=== PATIENT | male | born 1975 | race Caucasian/White ===

== ENCOUNTER → 2018-10-21 | Outpatient (CLI) | payer BC, SELFPAY ==
[2018-10-04 15:10] VITALS: BMI 26.2
[2018-10-21 12:55] LABS: Absolute Lymphocyte Count 1.11 X10^3/ul (0.83-4.51); Absolute Neutrophil Count 3.9 X10^3/uL (2.0-7.7); Basophil# 0.02 X10^3/uL; Basophil% 0.3 % (0-1); Eosinophil# 0.13 X10^3/uL; Eosinophils% 2.2 % (0-5); Hematocrit 47.8 % (40-54); Hemoglobin 16.6 g/dl (13.0-16.5); Lymphocyte # 1.11 X10^3/ul (4.0); Lymphocyte % 18.9 % (19-41); Mean Corp Hgb Conc 34.7 g/gl (32-36); Mean Corpuscular Hgb 30.7 pg (27.0-32.0); Mean Corpuscular Volume 88.5 fL (80-94); Mean Platelet Vol. 11.1 fl (6.2-12.0); Monocyte# 0.69 X10^3/uL; Monocyte% 11.8 % (0-10); Neutrophil # 3.88 X10^3/uL (2.7-7.7); Neutrophil % 66.3 % (47-70); Platelet Count 161 K/mm3 (150-450); RBC Distribution Width CV 13.1 % (11.6-14.6); RBC Distribution Width SD 42.2 fl (35.1-43.9); White Blood Count 5.9 K/mm3 (4.4-11.0)
[2018-10-21 12:57] LABS: POSITIVE COUNT NO; POSITIVE DIFFERENTIAL NO; POSITIVE MORPHOLOGY NO
[2018-10-21 13:15] LABS: ALB/GLOB Ratio 1.4 RATIO (0.9-2.4); AST(SGOT) 53 U/L (15-37); Alanine Aminotransfer ALT/SGPT 117 U/L (16-61); Albumin, Serum 4.2 g/dL (3.2-5.0); Alkaline Phosphatase 73 U/L (45-117); Anion Gap 5 (5-15); BUN 14 mg/dL (7-18); BUN/Creat Ratio 13.6 RATIO (10-20); Chloride 103 mmol/L (98-107); Creatinine, Serum 1.03 mg/dL (0.70-1.30); EST Glomerular Filtration Rate 84 mL/min (>60); Est Glom Filt Rate - Afr Amer 102 mL/min (>60); Globulin 2.9 g/dL (2.2-4.2); Glucose 87 mg/dL (74-106); Potassium 4.1 mmol/L (3.5-5.1); Protein, Total 7.1 g/dL (6.4-8.2); Sodium Level 139 mmol/L (136-145)
== END | disposition home or self-care (01) ==
LOC: BIMLAB 08:26
PROVIDERS: Family Provider Family Medicine; PCP Internal Medicine; Visit Provider Internal Medicine
DX: R74.8 Abnormal levels of other serum enzymes (principal)
CPT/HCPCS: 36415; 80053; 85025

== ENCOUNTER → 2018-10-28 | Outpatient (CLI) | payer BC, SELFPAY ==
[2018-10-04 15:10] VITALS: BMI 26.2
[2018-10-30 14:47] LABS: HEPATITIS B SURFACE AG Negative (Negative); Hep C Antibodies <0.1 s/co ratio (0.0-0.9)
== END | disposition home or self-care (01) ==
PROVIDERS: Family Provider Internal Medicine; PCP Internal Medicine; Referring Provider Internal Medicine; Visit Provider Internal Medicine
DX: R94.5 Abnormal results of liver function studies (principal)
CPT/HCPCS: 36415; 86803; 87340

== ENCOUNTER → 2018-10-31 | Outpatient (CLI) | payer BC, SELFPAY ==
[2018-10-04 15:10] VITALS: BMI 26.2
--- NOTE | 2018-10-31 10:00 | US_ITS ---
STUDY: ABDOMINAL ULTRASOUND - RIGHT UPPER QUADRANT REASON FOR VISIT: Male, 43 years old. Abnormal labs. Cholecystectomy 10 years ago. TECHNIQUE: Ultrasound evaluation of the right upper quadrant was performed with real-time and static cedeno-scale imaging. TECHNICAL QUALITY: Adequate. COMPARISON: None. FINDINGS: Liver: The liver measures 15.5 cm. There is normal echogenicity of the liver. The bile ducts are within normal limits. There is hepatic color flow. The direction of portal flow is hepatopetal. There is no demonstrated mass lesion. Gallbladder: Postsurgical absence. Common Bile Duct (C.B.D.): The common bile duct measures 3.4 mm. Pancreas: Normal size of the head, body and tail of the pancreas. There is normal echogenicity of the pancreas. There is no demonstrated pancreatic mass or cyst. The pancreatic duct is not dilated. Right Kidney: Normal size of the right kidney. The right kidney measures 11.4 x 5.5 x 5 point cm. Normal renal cortex. The right cortex measures 1.7 cm. There is no demonstrated renal mass or cyst. There is no right hydronephrosis. US/Liver IMPRESSION: 1. Normal right upper quadrant ultrasound examination. 2. Postsurgical absence of the gallbladder. Electronically Signed: Luis Alberto Tadeo MD at 10:59 EDT , Service support ,
== END | disposition home or self-care (01) ==
LOC: US 09:59
PROVIDERS: Family Provider Internal Medicine; PCP Internal Medicine; Referring Provider Internal Medicine; Visit Provider Internal Medicine
DX: R94.5 Abnormal results of liver function studies (principal)
CPT/HCPCS: 76705

== ENCOUNTER → 2018-12-23 | Outpatient (CLI) | payer BC, SELFPAY ==
[2018-11-01 15:03] VITALS: BMI 26.2
[2018-12-23 17:53] LABS: AST(SGOT) 19 U/L (15-37); Alanine Aminotransfer ALT/SGPT 39 U/L (16-61); Albumin, Serum 4.1 g/dL (3.2-5.0); Alkaline Phosphatase 71 U/L (45-117); Bilirubin, Direct 0.22 mg/dL (0.00-0.30); GGTP 59 U/L (15-85); Globulin 3.1 g/dL (2.2-4.2); LDH 202 U/L (87-241); Protein, Total 7.2 g/dL (6.4-8.2)
== END | disposition home or self-care (01) ==
LOC: MTLAB 16:26
PROVIDERS: Family Provider Internal Medicine; PCP Internal Medicine; Referring Provider Internal Medicine Gastroenterology; Visit Provider Internal Medicine Gastroenterology
DX: K75.9 Inflammatory liver disease, unspecified (principal)
CPT/HCPCS: 36415; 80076; 82977; 83615; 86880

== ENCOUNTER → 2019-03-30 | Outpatient (CLI) | payer BC, SELFPAY ==
[2018-11-01 15:03] VITALS: BMI 26.2
[2019-03-30 07:01] LABS: ALB/GLOB Ratio 1.3 RATIO (0.9-2.4); AST(SGOT) 17 U/L (15-37); Alanine Aminotransfer ALT/SGPT 33 U/L (16-61); Albumin, Serum 3.9 g/dL (3.2-5.0); Alkaline Phosphatase 69 U/L (45-117); Anion Gap 3 (5-15); BUN 19 mg/dL (7-18); Calcium,Total 8.8 mg/dL (8.5-10.1); Chloride 105 mmol/L (98-107); Cholesterol 150 mg/dL (200); Creatinine, Serum 0.95 mg/dL (0.70-1.30); EST Glomerular Filtration Rate 92 mL/min (>60); Est Glom Filt Rate - Afr Amer 112 mL/min (>60); Globulin 2.9 g/dL (2.2-4.2); Glucose 89 mg/dL (74-106); High Density Lipoprotein 31 mg/dL; Potassium 3.7 mmol/L (3.5-5.1); Protein, Total 6.8 g/dL (6.4-8.2); Sodium Level 138 mmol/L (136-145); Triglycerides 287 mg/dL; Very Low Density Lipoprotein 57 mg/dL (5-40)
== END | disposition home or self-care (01) ==
LOC: LAB 05:59
PROVIDERS: Family Provider Internal Medicine; PCP Internal Medicine; Referring Provider Nurse Practitioner Family; Visit Provider Nurse Practitioner Family
DX: R74.8 Abnormal levels of other serum enzymes (principal); E78.1 Pure hyperglyceridemia
CPT/HCPCS: 36415; 80053; 80061

== ENCOUNTER → 2020-08-09 10:22 | Outpatient (CLI) | payer BC, OTHER, SELFPAY ==
[2020-08-09 10:10] VITALS: BMI 27.8
[2020-08-09 12:14] LABS: Absolute Lymphocyte Count 1.14 X10^3/uL (0.83-4.51); Absolute Neutrophil Count 2.9 X10^3/uL (2.0-7.7); Basophil# 0.04 X10^3/uL; Basophil% 0.8 % (0-1); Eosinophil# 0.19 X10^3/uL; Hematocrit 48.5 % (40-54); Hemoglobin 16.9 g/dL (13.0-16.5); Lymphocyte # 1.14 X10^3/ul (4.0); Lymphocyte % 24.1 % (19-41); Mean Corp Hgb Conc 34.8 g/dL (32-36); Mean Corpuscular Hgb 30.3 pg (27.0-32.0); Mean Corpuscular Volume 86.9 fL (80-94); Monocyte# 0.47 X10^3/uL; Monocyte% 9.9 % (0-10); NRBC Flagged by Analyzer 0 % (0-5); Neutrophil # 2.88 X10^3/uL (2.7-7.7); Platelet Count 191 K/mm3 (150-450); RBC Distribution Width CV 12.1 % (11.6-14.6); RBC Distribution Width SD 38.6 fl (35.1-43.9); Red Blood Count 5.58 M/mm3 (4.6-6.2); White Blood Count 4.7 K/mm3 (4.4-11.0)
[2020-08-09 12:29] LABS: ALB/GLOB Ratio 1.2 RATIO (0.9-2.4); AST(SGOT) 22 U/L (15-37); Alanine Aminotransfer ALT/SGPT 62 U/L (16-61); Alkaline Phosphatase 77 U/L (45-117); Anion Gap 3 (5-15); BUN 16 mg/dL (7-18); BUN/Creat Ratio 13.6 RATIO (10-20); Calcium,Total 9.5 mg/dL (8.5-10.1); Chloride 105 mmol/L (98-107); Cholesterol 188 mg/dL (200); Creatinine, Serum 1.18 mg/dL (0.70-1.30); EST Glomerular Filtration Rate 71 mL/min (>60); Est Glom Filt Rate - Afr Amer 86 mL/min (>60); Globulin 3.3 g/dL (2.2-4.2); Glucose 96 mg/dL (74-106); High Density Lipoprotein 34 mg/dL; Potassium 4.4 mmol/L (3.5-5.1); Protein, Total 7.3 g/dL (6.4-8.2); Sodium Level 138 mmol/L (136-145); Triglycerides 335 mg/dL; Very Low Density Lipoprotein 67 mg/dL (5-40)
== END ==
PROVIDERS: PCP Internal Medicine; Referring Provider Internal Medicine; Visit Provider Internal Medicine
DX: Z00.00 Encounter for general adult medical examination without abnormal findings (principal)
CPT/HCPCS: 36415; 80053; 80061; 85025

== ENCOUNTER → 2020-11-22 10:06 | Outpatient (CLI) | payer BC, OTHER, SELFPAY ==
[2020-11-22 09:12] VITALS: BMI 27.8
[2020-11-22 13:38] LABS: ALB/GLOB Ratio 1.4 RATIO (0.9-2.4); AST(SGOT) 20 U/L (15-37); Alanine Aminotransfer ALT/SGPT 38 U/L (16-61); Albumin, Serum 4.2 g/dL (3.2-5.0); Alkaline Phosphatase 55 U/L (45-117); Anion Gap 4 (5-15); BUN 16 mg/dL (7-18); BUN/Creat Ratio 14.3 RATIO (10-20); Calcium,Total 9.3 mg/dL (8.5-10.1); Chloride 105 mmol/L (98-107); Cholesterol 185 mg/dL (200); Creatinine, Serum 1.12 mg/dL (0.70-1.30); EST Glomerular Filtration Rate 76 mL/min (>60); Est Glom Filt Rate - Afr Amer 91 mL/min (>60); Globulin 2.9 g/dL (2.2-4.2); Glucose 97 mg/dL (74-106); High Density Lipoprotein 38 mg/dL; Protein, Total 7.1 g/dL (6.4-8.2); Sodium Level 140 mmol/L (136-145); Triglycerides 183 mg/dL; Very Low Density Lipoprotein 37 mg/dL (5-40)
== END ==
PROVIDERS: PCP Internal Medicine; Visit Provider Internal Medicine
DX: E78.1 Pure hyperglyceridemia (principal)
CPT/HCPCS: 36415; 80053; 80061

== ENCOUNTER 2021-09-19 09:15 | Outpatient (CLI) | payer BC, SELFPAY ==
[2021-09-19 12:09] LABS: Absolute Lymphocyte Count 0.98 X10^3/uL (0.83-4.51); Absolute Neutrophil Count 2.8 X10^3/uL (2.0-7.7); Basophil# 0.05 X10^3/uL; Basophil% 1.1 % (0-1); Eosinophil# 0.13 X10^3/uL; Eosinophils% 2.9 % (0-5); Hematocrit 46.9 % (40-54); Hemoglobin 16.1 g/dL (13.0-16.5); Lymphocyte # 0.98 X10^3/ul (0.83-4.51); Lymphocyte % 21.8 % (19-41); Mean Corp Hgb Conc 34.3 g/dL (32-36); Mean Corpuscular Hgb 30.3 pg (27.0-32.0); Mean Corpuscular Volume 88.2 fL (80-94); Mean Platelet Vol. 11.1 fl (6.2-12.0); Monocyte# 0.49 X10^3/uL; Monocyte% 10.9 % (0-10); NRBC Flagged by Analyzer 0 % (0-5); Neutrophil # 2.84 X10^3/uL (2.7-7.7); Neutrophil % 63.1 % (47-70); Platelet Count 185 K/mm3 (150-450); RBC Distribution Width CV 12.6 % (11.6-14.6); RBC Distribution Width SD 40.7 fl (35.1-43.9); Red Blood Count 5.32 M/mm3 (4.6-6.2); White Blood Count 4.5 K/mm3 (4.4-11.0)
[2021-09-19 12:31] LABS: ALB/GLOB Ratio 1.5 RATIO (0.9-2.4); AST(SGOT) 18 U/L (15-37); Alanine Aminotransfer ALT/SGPT 32 U/L (16-61); Albumin, Serum 4.1 g/dL (3.2-5.0); Alkaline Phosphatase 59 U/L (45-117); Anion Gap 5 (5-15); BUN 15 mg/dL (7-18); BUN/Creat Ratio 14.2 RATIO (10-20); Calcium,Total 8.9 mg/dL (8.5-10.1); Chloride 105 mmol/L (98-107); Cholesterol 145 mg/dL (200); Creatinine, Serum 1.06 mg/dL (0.70-1.30); EST Glomerular Filtration Rate 80 mL/min (>60); Est Glom Filt Rate - Afr Amer 97 mL/min (>60); Globulin 2.8 g/dL (2.2-4.2); Glucose 100 mg/dL (74-106); High Density Lipoprotein 38 mg/dL; Potassium 3.8 mmol/L (3.5-5.1); Protein, Total 6.9 g/dL (6.4-8.2); Sodium Level 139 mmol/L (136-145); Triglycerides 112 mg/dL; Very Low Density Lipoprotein 22 mg/dL (5-40)
== END 2021-09-19 23:59 | disposition home or self-care (01) ==
LOC: BIMLAB 09:16
PROVIDERS: PCP Internal Medicine; Referring Provider Internal Medicine; Visit Provider Internal Medicine
DX: Z00.00 Encounter for general adult medical examination without abnormal findings (principal)
CPT/HCPCS: 36415; 80053; 80061; 85025

== ENCOUNTER 2021-12-29 14:15 | Emergency (ER) | payer BC, SELFPAY ==
[2021-12-29 14:16] VITALS: BP 172/101; PULSE 109; RESP 18; TEMP 36.6; O2SAT 99; BMI 26.8
--- NOTE | 2021-12-29 14:28 | EDS_ITS ---
HPI History of Present Illness Chief Complaint: Upper Extremity Injury Detail of Chief Complaint: Injury left thumb Informant: patient Narrative Narrative: Patient presents the emergency department complaint of an injury to his left thumb that occurred prior to arrival in the emergency department. Patient states that he was working on a [employer] when he is not sure if he struck his thumb with a hammer or that the metal piece came back and struck him on the thumb after he hit it with a hammer. Patient is right-hand dominant. Patient unsure of his last tetanus shot. [facility] Medical History (Updated 12/29/21 @ 14:[address] Varun Abdi, DO) Colon cancer screening Dermatitis History of asthma Preventative health care Seasonal allergies Home Medications fenofibrate 54 mg tablet 54 mg PO DAILY #90 tabs 09/05/21 [Rx Last Taken Unknown] cephalexin 500 mg capsule 500 mg PO Q6 #40 CAPSULES 12/29/21 [Rx Last Taken Unknown] Allergy/AdvReac Type Severity Reaction Status Date / Time amoxicillin Allergy Severe hives Verified 12/29/21 14:17 Family History Other Arthritis Cancer Heart disease Surgical History History of appendectomy History of cholecystectomy Social History Smoking Status: Never smoker Tobacco: How many years used: 2 alcohol intake: current alcohol intake frequency: holidays/special occasions only substance use type: does not use what type of physical activity do you participate in: none ROS ROS ED Review of Systems ROS Unobtainable: other Constitutional Constitutional ED: Reports lethargy; Denies chills, fever(s), sweats or weight loss Eyes Eyes: Denies blurry vision, change in vision or diplopia ENT ENT ED: Denies rhinorrhea or sore throat Cardiovascular Cardiovascular: Reports chest pain and racing heartbeat; Denies orthopnea Respiratory/Chest Respiratory/Chest: Reports dyspnea and dyspnea on exertion; Denies cough, orthopnea or sputum Gastrointestinal Gastrointestinal: Denies abdominal pain, diarrhea, nausea or vomiting Genitourinary Genitourinary ED: Denies dysuria, hematuria or urinary frequency Musculoskeletal Musculoskeletal: Reports other Details: Left thumb pain/injury ; Denies arthralgias, back pain, myalgias or neck pain Integumentary Denies abscess, Abrasions or rash Neurologic Neurologic: Denies headache(s) or weakness Psychiatric Psychiatric: Denies anxiety, depression or suicidal thoughts Endocrine Endocrinology: Denies polydipsia, polyphagia or polyuria Hematologic/Lymphatic Hematologic/Lymphatic: Denies easy bleeding, easy bruising or lymphadenopathy Allergic/Immunologic Allergic/Immunologic ED: Denies mouth swelling, tongue swelling or urticaria EXAM Physical Exam Const Vital Signs: 12/29/21 14:16 Temperature 97.9 F Temperature Source Temporal Pulse Rate 109 H Respiratory Rate 18 Blood Pressure 172/101 H Blood Pressure Mean 124 Pulse Ox 99 Oxygen Delivery Method Room Air Positive well nourished and well developed General Appearance ED: well developed and NAD HEENT Reports TM's clear and moist mucous membranes normocephalic and atraumatic; Negative for trauma or tenderness Tympanic Membrane ED: Yes TM's clear Eyes PERRL and EOMs intact bilaterally General Eye ED: Negative for pale conjunctiva or scleral icterus Neck no lymphadenopathy, supple and no JVD General: Negative for tenderness Chest Wall inspection of chest normal and palpation of chest normal Chest: Negative for tenderness Resp normal respiratory effort and clear to auscultation bilaterally Effort and Inspection: Negative for respiratory distress or pain with movement Auscultation: Negative for rhonchi, wheezes or diminished lung sounds Cardio regular rate, regular rhythm, S1 normal heart sound, S2 normal heart sound and no murmurs Peripheral Pulses: pulses 2+ throughout GI normal to inspection, nondistended, normoactive bowel sounds, soft to palpation, non-tender, non-distended and no masses Back/Spine no CVA tenderness and no thoracic nor lumbar tenderness Extremity Extremity Narrative: Left thumb-patient has a stellate like laceration to the distal tip of the distal phalanx volar to the nail. He has tenderness palpation over the distal phalanx. Neurovascularly intact. Laceration total length approximately 2.5 cm. General Extremety ED: Negative for edema General Extremity: Negative for edema Neuro oriented x3, CN's II-XII intact bilaterally, no sensory deficits noted and gait normal Sensorium / Orientation: awake, alert, oriented to person, oriented to place and oriented to time Motor Exam: strength 5/5 throughout and strength abnormal Psych mental status grossly normal Skin no rashes or lesions noted and no wounds MDM MDM MDM Narrative Medical decision making narrative: Discussed results of x-rays with patient. Patient had suture repair of the thumb. The laceration extended into the nailbed small portion underneath the nail itself which was still attached and intact. Did not feel the nail needed to be removed. I attached the dermal portion of the skin using 5 single erupted sutures of 5-0 nylon with good wound edge approximation. Patient tolerated procedure well. The wound was copiously irrigated with saline. Clean dressing was applied. Patient will be given a cage splint. Patient will be started on Keflex. Patient to follow-up with primary care physician in 10 days for suture removal. Patient to return if increasing pain, redness, swelling, purulent drainage, or condition worsen anyway. Patient received Adacel tetanus booster. Radiography Diagnostic Testing: Three-view x-rays of left thumb obtained interpreted by myself as distal phalanx fracture that is nondisplaced. Official report from radiology pending. Procedures Lacerations Left thumb laceration: Length: 0.98 in Depth: Sub Q Shape: Stellate Prep: Sterile Conditions Laceration repair: Digital block, Lidocaine, Skin sutures and Wound explored Irrigated (ml): 50 Number of Sutures/Lion: 5 Suture Information: Ethilon, Simple and 5-0 Discharge Plan Triage Chief Complaint: Upper Extremity Injury ED Provider: Varun Abdi Dx/Rx/DC Orders Clinical Impression: Open finger fracture Instructions: ED Fracture, Finger, Open Prescriptions: New cephalexin [cephalexin] 500 MG capsule 500 mg PO Q6 Qty: 40 0RF No Action fenofibrate 54 mg tablet 54 mg PO DAILY Qty: 90 3RF Primary Care Provider: Hi Madera Referrals: Hi Madera MD [Primary Care Provider] - 10 Day for suture removal Disposition Disposition: Home, Self Care
--- NOTE | 2021-12-29 14:32 | RAD_ITS ---
STUDY: X-RAY - LEFT HAND, ATTENTION THUMB REASON FOR EXAM: Male, 46 years old. injury TECHNIQUE: 3 view(s) of the finger were obtained. COMPARISON: None. FINDINGS: An acute linear fracture is present through the head/tip of the distal phalanx of the thumb with minimal displacement. No additional acute fractures are present. The surrounding soft tissues are mildly swollen. Normal metacarpal head. Normal metacarpophalangeal joint. Normal proximal phalanx. Normal middle phalanx. Normal proximal interphalangeal joint. Normal distal interphalangeal joint. RAD/Finger(s) Min 2 Views IMPRESSION: 1. Acute linear fracture through the tip of the distal phalanx of the thumb Electronically Signed: Jose Robbins MD at 15:36 EDT ,
[2021-12-29] MEDS: Diphth,Pertuss(Acell),Tet Vac 0.5 ML Vial IM (14:34)
[2021-12-29] MEDS: Lidocaine 1% (20 ml mdv) 20 ML Vial 8 ML INFILT (14:37)
[2021-12-29] MEDS: Cephalexin 250 MG Capsule 500 MG PO (15:03)
== END 2021-12-29 15:13 | disposition home or self-care (01) ==
PROVIDERS: Emergency Provider Emergency Medicine; PCP Internal Medicine; Visit Provider Emergency Medicine
DX: S62.502B Fracture of unspecified phalanx of left thumb, initial encounter for open fracture (principal); Z23 Encounter for immunization; X58.XXXA Exposure to other specified factors, initial encounter
CPT/HCPCS: 12001; 73140; 90715; 96372; 99282

== ENCOUNTER 2022-11-14 13:20 | Emergency (ER) | payer BC, SELFPAY ==
[2022-11-14 13:21] VITALS: BP 156/83; PULSE 73; RESP 16; TEMP 36.3; O2SAT 99; BMI 26.9
[2022-11-14] MEDS: oxyCODONE 5 MG Tablet PO (13:47)
--- NOTE | 2022-11-14 13:58 | RAD_ITS ---
INDICATION: injury EXAMINATION/TECHNIQUE: X-RAY - LEFT XR Femur Min 2 Views 4 VIEWS COMPARISON: FINDINGS: SOFT TISSUES: No soft tissue swelling or gas. No radiopaque foreign body. BONES/JOINTS: No acute fracture or subluxation.. Normal alignment. Preservation of the joint space.. No sclerotic or destructive changes observed. RAD/Femur Min 2 Views IMPRESSION: No acute osseous injury. Electronically Signed: Phyllis Gar MD at 14:35 EDT ,
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
== END 2022-11-14 15:22 | disposition home or self-care (01) ==
PROVIDERS: Emergency Provider Student in an Organized Health Care Education/Training Program; PCP Internal Medicine; Visit Provider Student in an Organized Health Care Education/Training Program
DX: S70.312A Abrasion, left thigh, initial encounter (principal); W31.89XA Contact with other specified machinery, initial encounter; Y92.79 Other farm location as the place of occurrence of the external cause; E78.5 Hyperlipidemia, unspecified; Z79.899 Other long term (current) drug therapy; Z90.49 Acquired absence of other specified parts of digestive tract
CPT/HCPCS: 73552; 73590; 99283

== ENCOUNTER 2022-11-18 18:10 | Emergency (ER) | payer BC, SELFPAY ==
[2022-11-18 18:11] VITALS: BP 145/91; PULSE 80; RESP 18; TEMP 35.8; O2SAT 97; BMI 26.4
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
[2022-11-18 19:54] VITALS: BP 113/83; PULSE 74; RESP 16; O2SAT 98
== END 2022-11-18 19:56 | disposition home or self-care (01) ==
PROVIDERS: Emergency Provider Emergency Medicine; PCP Internal Medicine; Visit Provider Emergency Medicine
DX: S80.12XA Contusion of left lower leg, initial encounter (principal); R60.0 Localized edema; Z90.49 Acquired absence of other specified parts of digestive tract; W22.8XXA Striking against or struck by other objects, initial encounter; Y92.79 Other farm location as the place of occurrence of the external cause
CPT/HCPCS: 93971; 99282

== ENCOUNTER → 2023-12-17 | Outpatient (CLI) | payer BC, SELFPAY ==
[2023-12-17 12:18] LABS: Absolute Lymphocyte Count 1.04 X10^3/uL (0.83-4.51); Absolute Neutrophil Count 3.3 X10^3/uL (2.0-7.7); Basophil# 0.03 X10^3/uL; Basophil% 0.6 % (0-1); Eosinophil# 0.04 X10^3/uL; Eosinophils% 0.8 % (0-5); Hematocrit 44.2 % (40-54); Hemoglobin 15.1 g/dL (13.0-16.5); Lymphocyte # 1.04 X10^3/ul (0.83-4.51); Lymphocyte % 21.1 % (19-41); Mean Corp Hgb Conc 34.2 g/dL (32-36); Mean Corpuscular Hgb 30.3 pg (27.0-32.0); Mean Corpuscular Volume 88.6 fL (80-94); Mean Platelet Vol. 11.2 fl (6.2-12.0); Monocyte# 0.47 X10^3/uL; Monocyte% 9.5 % (0-10); NRBC Flagged by Analyzer 0 % (0-5); Neutrophil # 3.34 X10^3/uL (2.7-7.7); Neutrophil % 67.8 % (47-70); Platelet Count 162 K/mm3 (150-450); RBC Distribution Width CV 12.2 % (11.6-14.6); RBC Distribution Width SD 39.6 fl (35.1-43.9); Red Blood Count 4.99 M/mm3 (4.6-6.2); White Blood Count 4.9 K/mm3 (4.4-11.0)
[2023-12-17 12:43] LABS: ALB/GLOB Ratio 1.4 RATIO (0.9-2.4); AST(SGOT) 25 U/L (15-37); Alanine Aminotransfer ALT/SGPT 39 U/L (16-61); Albumin, Serum 3.9 g/dL (3.2-5.0); Alkaline Phosphatase 50 U/L (45-117); Anion Gap 10 (5-15); BUN 18 mg/dL (7-18); BUN/Creat Ratio 17.3 RATIO (10-20); Calcium,Total 8.9 mg/dL (8.5-10.1); Chloride 106 mmol/L (98-107); Cholesterol 139 mg/dL (200); Creatinine, Serum 1.04 mg/dL (0.70-1.30); EST Glomerular Filtration Rate 81 mL/min (>60); Est Glom Filt Rate - Afr Amer 98 mL/min (>60); Globulin 2.8 g/dL (2.2-4.2); Glucose 104 mg/dL (74-106); High Density Lipoprotein 39 mg/dL; Potassium 3.7 mmol/L (3.5-5.1); Protein, Total 6.7 g/dL (6.4-8.2); Sodium Level 141 mmol/L (136-145); Triglycerides 115 mg/dL; Very Low Density Lipoprotein 23 mg/dL (5-40)
== END | disposition home or self-care (01) ==
LOC: BIMLAB 10:14
PROVIDERS: Physician Assistant; PCP Internal Medicine; Referring Provider Internal Medicine; Visit Provider Internal Medicine
DX: Z00.00 Encounter for general adult medical examination without abnormal findings (principal); E78.5 Hyperlipidemia, unspecified
CPT/HCPCS: 36415; 80053; 80061; 85025

== ENCOUNTER → 2025-01-26 | Outpatient (CLI) | payer OTHER, BC, SELFPAY ==
[2025-01-26 16:35] LABS: Hematocrit 42.7 % (40-54); Hemoglobin 14.9 g/dL (13.0-16.5); Immature Granulocytes Count 0.030 X10^3/uL (0.0-0.0); Mean Corp Hgb Conc 34.9 g/dL (32-36); Mean Corpuscular Volume 87.9 fL (80-94); Mean Platelet Vol. 10.9 fl (6.2-12.0); NRBC Flagged by Analyzer 0 % (0-5); Platelet Count 168 K/mm3 (150-450); RBC Distribution Width CV 12.6 % (11.6-14.6); RBC Distribution Width SD 40.5 fl (35.1-43.9); Red Blood Count 4.86 M/mm3 (4.6-6.2); White Blood Count 5.2 K/mm3 (4.4-11.0)
[2025-01-26 17:16] LABS: AST(SGOT) 24 U/L (<=37); Alanine Aminotransfer ALT/SGPT 32 U/L (<=46); Albumin, Serum 4.3 g/dL (3.5-5.0); Alkaline Phosphatase 58 U/L (40-129); Anion Gap 12 (5-15); BUN 16 mg/dL (4-19); BUN/Creat Ratio 14.7 RATIO (10-20); Calcium,Total 10.0 mg/dL (7.6-11.0); Carbon Dioxide 24.3 mmol/L (21.0-32.0); Chloride 105 mmol/L (98-108); Cholesterol 152 mg/dL (<=200); Globulin 2.1 g/dL (2.2-4.2); Glucose 108 mg/dL (70-99); Low Density Lipoprotein Calc. 82 mg/dL; Potassium 3.7 mmol/L (3.3-5.1); Triglycerides 164 mg/dL; Very Low Density Lipoprotein 33 mg/dL (5-40); cholesterol:hdl ratio screen 4.04
--- OUTSIDE RECORDS SUMMARY | 2025-01-26 19:30 | XMS RPT_ITS | CCD ---
Author Organization [facility] Care Team Providers Care Compensation Consulting Manager Name Role Phone Dr. Hi Madera Primary Care Provider [phone] Dr. Hi Madera Attending Provider [phone] Dr. Hi Madera Referring Provider [phone] Hi Madera Referring Unavailable Josse Miller Attending Unavailable Hi Madera Primary Care Unavailable Hi Madera Primary Care Unavailable Hi Madera Attending Unavailable Hi Madera Referring Unavailable Santy DANIEL, Dr. Do Primary Care Provider Dr. Hi Madera MD Referring Provider [phone] Josse Miller Attending Provider [phone] Allergies Allergy Classification Reported Allergen(s) Allergy Type Date of Onset Reaction(s) Facility (3 sources) Amoxicillin Drug Allergy 09-05-2021 [facility] (1 source) Amoxicillin Drug Allergy 12-08-2023 [facility] Repository Medications Current Medications Medication Drug Class(es) Dates Sig (Normalized) Sig (Original) fenofibrate 54 mg oral tablet (10 sources) Peroxisome Proliferator Receptor alpha Agonist Start: 08-09-2020 End: 01-26-2025 take 1 tablet by mouth once daily Fenofibrate 54 mg tablet Active 0 .ROUTE .COMPLEX 90 January 26, 2025 3:22pm TAKE 1 TABLET BY MOUTH DAILY hydrocortisone 25 mg/ml topical cream (1 source) Corticosteroid Start: 09-05-2021 Hydrocortisone Active 1 APPLIC TOPICAL TWICE A DAY September 05, 2021 4:00pm Completed/Discontinued Medications Medication Drug Class(es) Dates Sig (Normalized) Sig (Original) B-Complex With Vitamin C (Super B Complex-Vitamin C) tablet (3 sources) Start: 10-04-2018 End: 11-01-2018 take 1 tablet by mouth once daily B-Complex With Vitamin C (Super B Complex-Vitamin C) tablet Discontinued 1 TABLET PO DAILY October 04, 2018 3:07pm November 01, 2018 3:01pm Start: 10-04-2018 End: 11-01-2018 B-Complex With Vitamin C (Meza per B Complex-Vitamin C) tablet Discontinued 1 {tbl} PO DAILY October 04, 2018 12:00am November 01, 2018 3:01pm Start: 10-04-2018 End: 11-01-2018 take 1 tablet by mouth once daily B-Complex With Vitamin C (Super B Complex-Vitamin C) tablet Discontinued 1 TABLET PO DAILY October 04, 2018 12:00am November 01, 2018 3:01pm cephalexin 500 mg oral capsule (2 sources) Cephalosporin Antibacterial Start: 12-29-2021 End: 01-08-2022 take 1 capsule by mouth every six hours Cephalexin 500 MG capsule Discontinued 500 mg PO EVERY 6 HOURS 40 0 December 29, 2021 12:00am January 08, 2022 2:38pm cholecalciferol 0.05 mg oral capsule (3 sources) Vitamin D Start: 10-04-2018 End: 11-01-2018 take 1 capsule by mouth once daily Cholecalciferol (Vitamin D3) 2,000 unit capsule Discontinued 2000 U PO DAILY October 04, 2018 12:00am November 01, 2018 3:01pm 24 hr fexofenadine hydrochloride 180 mg / pseudoephedrine hydrochloride 240 mg extended release oral tablet (3 sources) alpha-Adrenergic Agonist, Histamine-1 Receptor Antagonist Start: 10-04-2018 End: 08-09-2020 take 1 tablet by mouth every twenty-four hours in the morning Fexofenadine-Pseudoe phedrine (Barbara-D 24 Hour) 180-240 mg tablet extended release 24 hr Discontinued 1 {tbl} PO EVERY MORNING October 04, 2018 12:00am August 09, 2020 11:09am Start: 10-04-2018 End: 08-09-2020 take 1 tablet by mouth once daily in the morning, then take 1 tablet by mouth every twenty-four hours Fexofenadine-Pseudoephedrine (Barbara-D 24 Hour) 180-240 mg tablet extended release 24 hr Discontinued 1 TABLET PO EVERY MORNING October 04, 2018 3:06pm August 09, 2020 11:09am icosapent ethyl 1000 mg oral capsule (3 sources) Start: 03-31-2019 End: 08-09-2020 Icosapent Ethyl (Vascepa) 1 gram capsule Discontinued 2 g PO TWICE A DAY 360 3 March 31, 2019 12:00am August 09, 2020 11:10am Anza 6-Nsp-Vhh-Fish Oil (Fish Oil) 60-90-500 mg capsule (3 sources) Start: 08-09-2020 End: 09-05-2021 take 1 capsule by mouth once daily Anza 8-Niy-Owy-Fish Oil (Fish Oil) 60-90-500 mg capsule Discontinued 1 CAP PO DAILY August 09, 2020 11:09am September 05, 2021 3:32pm Start: 08-09-2020 End: 09-05-2021 Anza 7-Sea-Iki-Fish Oil (Fi sh Oil) 60-90-500 mg capsule Discontinued 1 NMA PO DAILY August 09, 2020 1:00am September 05, 2021 3:32pm Start: 08-09-2020 End: 09-05-2021 take 1 capsule by mouth once daily Anza 9-Ywn-Oqx-Fish Oil (Fish Oil) 60-90-500 mg capsule Discontinued 1 CAP PO DAILY August 09, 2020 1:00am September 05, 2021 3:32pm Problems Problem Classification Problem Date Documented Da te Episodic/Chronic Allergic reactions (5 sources) Inflammatory dermatosis; Translations: [Dermatitis, unspecified] Episodic Disorders of lipid metabolism (7 sources) Hypertriglyceridemi a; Translations: [Pure hyperglyceridemia] Onset: 12-08-2023 11-22-2020 Chronic Fracture of upper limb (2 sources) Open fracture of phalanx of finger; Translations: [Fracture of unspecified phalanx of unspecified finger, initial encounter for open fracture] 01-06-2022 Episodic Open wounds of extremities (1 source) Open wound of left thumb; Translations: [Unspecified open wound of left thumb without damage to nail, initial encounter] 01-08-2022 Episodic Other aftercare (1 source) Surgical follow-up; Translations: [Encounter for removal of sutures] 07-14-2022 Episodic Other connective tissue disease (1 source) Pain in lower limb; Translations: [Pain in leg, unspecified] 11-22-2022 Episodic Other injuries and conditions due to external causes (1 source) Abrasion; Translations: [Other injury of unspecified body region, initial encounter] 11-22-2022 Episodic Other screening for suspected conditions (not mental disorders or infectious disease) (7 sources) Patient encounter status; Translations: [Encounter for screening for malignant neoplasm of colon] Onset: 12-08-2023 Episodic Residual codes; unclassified (1 source) Edema; Translations: [Edema, unspecified] 11-26-2022 Episodic Superficial injury; contusion (1 source) Contusion of left lower leg, initial encounter; Translations: [Contusion of left lower extremity] 11-26-2022 Episodic Varicose veins of lower extremity (3 sources) Varicose veins of lower extremity; Translations: [Asymptomatic varicose veins of left lower extremity] 10-04-2018 Episodic Results Test Name Value Interpretation Reference Range Facil ity CBC W/Diff, Automatedon - Absolute Lymph 1.04 X10 3/uL Normal 0.83-4.51 [facility] Comment on above: Performed By: #### L 100.0100, L500.4050, L500.4100 #### [facility] [address] [place], [address] Absolute Neut 3.3 X10 3/uL Normal 2.0-7.7 [facility] Comment on above: Performed By: #### L 100.0100, L500.4050, L500.4100 #### [facility] [address] [place], [address] Basophils/100 WBC (Bld) 0.6 % Normal 0-1 [facility] Comment on above: Performed By: #### L 100.0100, L500.4050, L500.4100 #### [facility] [address] [place], [address] Eosinophils/100 WBC (Bld) 0.8 % Normal 0-5 [facility] Comment on above: Performed By: #### L 100.0100, L500.4050, L500.4100 #### [facility] [address] [place], [address] Erythrocyte distribution width (RBC) [Ratio] 12.2 % Normal 11.6-14.6 [facility] Comment on above: Performed By: #### L 100.0100, L500.4050, L500.4100 #### [facility] [address] [place], [address] Hematocrit (Bld) [Volume fraction] 44.2 % Normal 40-54 [facility] Comment on above: Performed By: #### L 100.0100, L500.4050, L500.4100 #### [facility] [address] [place], [address] Hemoglobin (Bld) [Mass/Vol] 15.1 g/dL Normal 13.0-16.5 [facility] Comment on above: Performed By: #### L 100.0100, L500.4050, L500.4100 #### [facility] [address] [place], [address] IG% 0.200 Normal 0.0-0.9 [facility] Comment on above: Result Comment: IG% - Immature Granulocytes (promyelocytes, myelocytes and metamyelocytes) > 1% indicates that a LEFT SHIFT is Present. Performed By: #### L 100.0100, L500.4050, L500.4100 #### [facility] [address] [place], [address] Lymphocytes/100 WBC (Bld) 21.1 % Normal 19-41 [facility] Comment on above: Performed By: #### L 100.0100, L500.4050, L500.4100 #### [facility] [address] [place], [address] MCH (RBC) [Entitic mass] 30.3 pg Normal 27.0-32.0 [facility] Comment on above: Performed By: #### L 100.0100, L500.4050, L500.4100 #### [facility] [address] [place], [address] MCHC (RBC) [Mass/Vol] 34.2 g/dL Normal 32-36 [facility] Comment on above: Performed By: #### L 100.0100, L500.4050, L500.4100 #### [facility] [address] [place], [address] MCV (RBC) [Entitic vol] 88.6 fL Normal 80-94 [facility] Comment on above: Performed By: #### L 100.0100, L500.4050, L500.4100 #### [facility] [address] [place], [address] Monocytes/100 WBC (Bld) 9.5 % Normal 0-10 [facility] Comment on above: Performed By: #### L 100.0100, L500.4050, L500.4100 #### [facility] [address] [place], [address] Neutrophils/100 WBC (Bld) 67.8 % Normal 47-70 [facility] Comment on above: Performed By: #### L 100.0100, L500.4050, L500.4100 #### [facility] [address] [place], [address] Nucleated RBC (Bld) [#/Vol] 0 10*3/uL Normal 0-5 [facility] Comment on above: Performed By: #### L 100.0100, L500.4050, L500.4100 #### [facility] [address] [place], [address] Platelet mean volume (Bld) [Entitic vol] 11.2 fL Normal 6.2-12.0 [facility] Comment on above: Performed By: #### L 100.0100, L500.4050, L500.4100 #### [facility] [address] [place], [address] Platelets (Bld) [#/Vol] 162 10*3/uL Normal 150-450 [facility] Comment on above: Performed By: #### L 100.0100, L500.4050, L500.4100 #### [facility] [address] [place], [address] RBC (Bld) [#/Vol] 4.99 10*6/uL Normal 4.6-6.2 [facility] Comment on above: Performed By: #### L 100.0100, L500.4050, L500.4100 #### [facility] [address] [place], [address] RDW SD 39.6 fl Normal 35.1-43.9 [facility] Comment on above: Performed By: #### L 100.0100, L500.4050, L500.4100 #### [facility] [address] [place], [address] WBC (Bld) [#/Vol] 4.9 10*3/uL Normal 4.4-11.0 [facility] Comment on above: Performed By: #### L 100.0100, L500.4050, L500.4100 #### [facility] [address] [place], [address] Comprehensive Metabolic Prof [facility] 12-17-2023 Albumin [Mass/Vol] 3.9 g/dL Normal 3.2-5.0 [facility] Comment on above: Performed By: #### L 100.0100, L500.4050, L500.4100 #### [facility] [address] [place], [address] Albumin/Globulin [Mass ratio] 1.4 {ratio} Normal 0.9-2.4 [facility] Comment on above: Performed By: #### L 100.0100, L500.4050, L500.4100 #### [facility] [address] [place], [address] ALK P 50 U/L Normal 45-117 [facility] Comment on above: Performed By: #### L 100.0100, L500.4050, L500.4100 #### [facility] [address] [place], [address] ALT [Catalytic activity/Vol] 39 U/L Normal 16-61 [facility] Comment on above: Performed By: #### L 100.0100, L500.4050, L500.4100 #### [facility] [address] [place], [address] AST [Catalytic activity/Vol] 25 U/L Normal 15-37 [facility] Comment on above: Performed By: #### L 100.0100, L500.4050, L500.4100 #### [facility] [address] [place], [address] Bilirubin [Mass/Vol] 1.70 mg/dL High 0.20-1.00 [facility] Comment on above: Result Comment: For patients on eltrombopag therapy, use of Dimension [place] TBIL is not recommended. Performed By: #### L 100.0100, L500.4050, L500.4100 #### [facility] [address] [place], [address] BUN/CRE 17.3 RATIO Normal 10-20 [facility] Comment on above: Performed By: #### L 100.0100, L500.4050, L500.4100 #### [facility] [address] [place], [address] CA,Total 8.9 mg/dL Normal 8.5-10.1 [facility] Comment on above: Performed By: #### L 100.0100, L500.4050, L500.4100 #### [facility] [address] [place], [address] Chloride [Moles/Vol] 106 mmol/L Normal 98-107 [facility] Comment on above: Performed By: #### L 100.0100, L500.4050, L500.4100 #### [facility] [address] [place], [address] CO2 [Moles/Vol] 25.0 mmol/L Normal 21.0-32.0 [facility] Comment on above: Performed By: #### L 100.0100, L500.4050, L500.4100 #### [facility] [address] [place], [address] Creatinine [Mass/Vol] 1.04 mg/dL Normal 0.70-1.30 [facility] Comment on above: Result Comment: The validity of the calculated GFR GFRAA in patients over 70 years has not been determined. Clinical correlation is essential. Performed By: #### L 100.0100, L500.4050, L500.4100 #### [facility] [address] [place], [address] EST GFR - AA 98 mL/min Normal >60 [facility] Comment on above: Result Comment: Afri can Swazi GFR Calc Performed By: #### L 100.0100, L500.4050, L500.4100 #### [facility] [address] [place], [address] GAP 10 Normal 5-15 [facility] Comment on above: Performed By: #### L 100.0100, L500.4050, L500.4100 #### [facility] [address] [place], [address] GFR/1.73 sq M.predicted among non-blacks MDRD (S/P/Bld) [Vol rate/Area] 81 mL/min/{1.73_m2} Normal >60 [facility] Comment on above: Result Comment: Non- GFR Calc Performed By: #### L 100.0100, L500.4050, L500.4100 #### [facility] [address] [place], [address] Globulin (S) [Mass/Vol] 2.8 g/dL Normal 2.2-4.2 [facility] Comment on above: Performed By: #### L 100.0100, L500.4050, L500.4100 #### [facility] [address] [place], [address] Glucose [Mass/Vol] 104 mg/dL Normal 74-106 [facility] Comment on above: Result Comment: Fast ing Glucose result from 100 to 125 mg/dL suggests IMPAIRED HOMEOSTASIS per A.D.A. criteria. Performed By: #### L 100.0100, L500.4050, L500.4100 #### [facility] [address] [place], [address] Potassium [Moles/Vol] 3.7 mmol/L Normal 3.5-5.1 [facility] Comment on above: Performed By: #### L 100.0100, L500.4050, L500.4100 #### [facility] [address] [place], [address] Sodium [Moles/Vol] 141 mmol/L Normal 136-145 [facility] Comment on above: Performed By: #### L 100.0100, L500.4050, L500.4100 #### [facility] [address] [place], [address] T PROT 6.7 g/dL Normal 6.4-8.2 [facility] Comment on above: Performed By: #### L 100.0100, L500.4050, L500.4100 #### [facility] [address] [place], [address] Urea nitrogen [Mass/Vol] 18 mg/dL Normal 7-18 [facility] Comment on above: Performed By: #### L 100.0100, L500.4050, L500.4100 #### [facility] [address] [place], [address] Lipid Profileon 12-17-2023 Cholesterol [Mass/Vol] 139 mg/dL Normal 200 [facility] Comment on above: Result Comment: <200 mg/dL Desirable 200-240 mg/dL Borderline >240 mg/dL High Risk Performed By: #### L 100.0100, L500.4050, L500.4100 #### [facility] [address] [place], [address] Cholesterol in HDL [Mass/Vol] 39 mg/dL Low [facility] Comment on above: Result Comment: The drugs N-Acetylcysteine and Metamizole may falsely depress this assay. Reference Range HDL <40 mg/dL Low HDL Cholesterol HDL >or= 60 mg/dL High HDL Cholesterol Performed By: #### L 100.0100, L500.4050, L500.4100 #### [facility] [address] [place], [address] Cholesterol in LDL [Mass/Vol] 77 mg/dL Normal 0-130 [facility] Comment on above: Performed By: #### L 100.0100, L500.4050, L500.4100 #### [facility] [address] [place], [address] Cholesterol in VLDL [Mass/Vol] 23 mg/dL Normal 5-40 [facility] Comment on above: Performed By: #### L 100.0100, L500.4050, L500.4100 #### [facility] [address] [place], [address] Triglyceride [Mass/Vol] 115 mg/dL Normal [facility] Comment on above: Result Comment: The drugs N-Acetylcysteine and Metamizole may falsely depress this assay. Serum Triglycerides Reference Interval Normal <150 mg/dL Borderline high 150 - 199 mg/dL High 200 - 499 mg/dL Very High > or = 500 mg/dL Performed By: #### L 100.0100, L500.4050, L500.4100 #### [facility] [address] [place], [address] Internal Medicine Office Vis iton 12-08-2023 Internal Medicine Office Visit [facility] [address] [place] [address] [place] [address] OFFICE VISIT Date of Service: 12/08/23 MR#: [id number] Acct: [id number] Name: MARCELO KIRK Rep #: [id number] : 1975 Provider: REX Sarah Age/Sex: 48/M Location: [facility] Status: Signed Intake Vital Signs 11/18/22 18:11 12/08/23 15:23 Height 5 ft 8 in 5 ft 8 in Weight: 177 lb BMI 26.9 BP 120/82 H Blood Pressure Location Lt brachial Position Sitting Respiration 18 Pulse 81 Pulse Source Monitor Temp 97.6 F L Temp Source Temporal Pulse Oximetry (%) 95 Oxygen Delivery Method room air Intake Visit Reasons: FOLLOW UP 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 [facility] Medical History Encounter for removal of sutures Open wound of left thumb without complication Dermatitis Preventative health care Colon cancer screening Seasonal allergies History of asthma Surgical History History of cholecystectomy History of appendectomy Family History Other Arthritis Cancer Heart disease Social History (Updated 12/08/23 @ 15:23 by Brisa Kwon MA) adopted: No household members: spouse and children number of children: 2 service: No current occupational status: employed current occupation: [employer] pets and animals: Yes (2) pets and animals: cat(s) sexually active: Yes do you think of yourself as: straight/heterosexual current gender identity: male Smoking Status: Former smoker quit date: 06/28/96 Tobacco: How many years used: 2 how long ago did patient quit smoking: used smokeless for 20 years alcohol intake: current alcohol intake frequency: holidays/special occasions only substance use type: does not use caffeine: Yes (3) Type: carbonated beverages and coffee what type of physical activity do you participate in: none seatbelt use: always do you feel safe at home: Yes HPI HPI Details: MARCELO KIRK, is a 48 M who presents to the office today for a refill of medication for his cholesterol. He states that he has not been in here in almost 2 years but states that he was given a years worth of the medication about a year ago. He states that he doesn't really have family history of high cholesterol and there is no heart disease / acute coronary syndrome that he is aware of. He overall is a healthy 48 year old male without any major medical history. He states that he does have a pretty balanced diet getting lots of fruits and vegetables. He eats fast foods 1-2 times a week. He tries to avoid the sweets / junk foods. He does drink about 2 cups of coffee per day and one pop and then some water. 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 He has not had any previous medical issues other than having his gall bladder and appendix removed in 2 separate events. There is some cancer in the family (uncle with skin cancer, grandfather with some form of cancer). Patient does see a dentist regularly. He does not seen eye doctor He is UTD with immunizations as far as he knows. No diabetes or HTN issues with him or family Patient has no concerns or complaints at this time ROS Const Constitutional: No body ache, chills, excessive sweating, fatigue, fever(s), frequent falls, headache(s), snoring, weakness, sleep problems or change in appetite Eyes Eyes: No blurry vision, change in vision, eye pain or Light sensitivity ENT ENT: No abnormal hearing, ear or mastoid pain, tinnitus, nasal congestion, headache(s), neck pain or sore throat Resp Respiratory: No cough, shortness of breath, snoring or wheezing Cardio Cardiology: No chest pain at rest, chest pain with exertion, excessive sweating, shortness of breath, dyspnea on exertion, lightheadedness, orthopnea or palpitations Gastro GI: No abdominal pain, change in bowel habits, constipation, cramping, diarrhea, nausea/dyspepsia or vomiting Genitourinary Male: No burning urination, painful urination, urinary incontinence or urinary frequency Musc Musculoskeletal: No abnormal gait, joint pain, back pain, limited range of motion, neck pain or numbness Skin Skin: No dry skin, redness, lesions, itchy eyes, rash or wounds Neuro Neurology: No abnormal gait, abnormal hearing, weakness, frequent falls, headache(s), memory (more content not included)... Normal [facility] Absolute lymphocyte counton 09-19-2021 Lymphocytes Auto (Unsp spec) [#/Vol] 0.98 10*3/uL 0.83-4.51 [facility] Work Phone: Basophil percentageon 2021 Basophils/100 WBC (Bld) 1.1 % 0-1 [facility] Work Phone: Bilirubin [Mass/Vol] 1.80 mg/dL 0.20-1.00 [facility] Work Phone: Comment on above: For patients on eltr ombopag therapy, use of Dimension [place] TBIL is not recommended. Chloride [Moles/Vol] 105 mmol/L 98-107 [facility] Work Phone: Cholesterol [Mass/Vol] 145 mg/dL <200 [facility] Work Phone: Comment on above: <200 mg/dL Desirable 200-240 mg/dL Borderline >240 mg/dL High Risk Eosinophils/100 WBC (Bld) 2.9 % 0-5 [facility] Work Phone: Glucose [Mass/Vol] 100 mg/dL 74-106 [facility] Work Phone: Comment on above: Fasting Glucose resu lt from 100 to 125 mg/dL suggests IMPAIRED HOMEOSTASIS per A.D.A. criteria. Neutrophils (Bld) [#/Vol] 2.8 10*3/uL 2.0-7.7 [facility] Work Phone: Neutrophils/100 WBC (Bld) 63.1 % 47-70 [facility] Work Phone: Potassium [Moles/Vol] 3.8 mmol/L 3.5-5.1 [facility] Work Phone: Protein [Mass/Vol] 6.9 g/dL 6.4-8.2 [facility] Work Phone: Sodium [Moles/Vol] 139 mmol/L 136-145 [facility] Work Phone: Triglyceride [Mass/Vol] 112 mg/dL <199 [facility] Work Phone: Comment on above: The drugs N-Acetylcy steine and Metamizole may falsely depress this assay.Serum Triglycerides Reference Interval Normal <150 mg/dL Borderline high 150 - 199 mg/dL High 200 - 499 mg/dL Very High > or = 500 mg/dL WBC (Bld) [#/Vol] 4.5 10*3/uL 4.4-11.0 [facility] Work Phone: Blood erythrocytes count (nu mber/volume)on 09-19-2021 RBC (Bld) [#/Vol] 5.32 10*6/uL 4.6-6.2 [facility] Work Phone: Blood hemoglobin measurement (mass/volume)on 09-19-2021 Hemoglobin (Bld) [Mass/Vol] 16.1 g/dL 13.0-16.5 [facility] Work Phone: Blood lymphocytes/100 leukoc yteson 09-19-2021 Lymphocytes/100 WBC (Bld) 21.8 % 19-41 [facility] Work Phone: Blood monocytes/100 leukocyt eson 09-19-2021 Monocytes/100 WBC (Bld) 10.9 % 0-10 [facility] Work Phone: Blood platelet mean volumeon 09-19-2021 Platelet mean volume (Bld) [Entitic vol] 11.1 fL 6.2-12.0 [facility] Work Phone: Determination of erythrocyte mean corpuscular volume (MCV)on 09-19-2021 MCV (RBC) [Entitic vol] 88.2 fL 80-94 [facility] Work Phone: Hematocrit Auto (Bld) [Volum e fraction]on 09-19-2021 Hematocrit (Bld) [Volume fraction] 46.9 % 40-54 [facility] Work Phone: Laboratory - Chemistry and C hemistry - challengeon 09-19-2021 ALP [Catalytic activity/Vol] 59 U/L 45-117 [facility] Work Phone: ALT [Catalytic activity/Vol] 32 U/L 16-61 [facility] Work Phone: CO2 [Moles/Vol] 29.0 mmol/L 21.0-32.0 [facility] Work Phone: Globulin (S) [Mass/Vol] 2.8 g/dL 2.2-4.2 [facility] Work Phone: Urea nitrogen/Creatinine [Mass ratio] 14.2 mg/mg 10-20 [facility] Work Phone: Laboratory - Hematology and Cell countson 09-19-2021 Erythrocyte distribution width (RBC) [Entitic vol] 40.7 fL 35.1-43.9 [facility] Work Phone: Erythrocyte distribution width (RBC) [Ratio] 12.6 % 11.6-14.6 [facility] Work Phone: Immature granulocytes/100 WBC (Bld) 0.200 % 0.0-0.9 [facility] Work Phone: Comment on above: IG% - Immature Granu locytes (promyelocytes, myelocytes and metamyelocytes) > 1% indicates that a LEFT SHIFT is Present. MCH (RBC) [Entitic mass] 30.3 pg 27.0-32.0 [facility] Work Phone: Nucleated RBC/100 WBC (Bld) [Ratio] 0 % 0-5 [facility] Work Phone: MCHC Auto (RBC) [Mass/Vol]on 09-19-2021 MCHC (RBC) [Mass/Vol] 34.3 g/dL 32-36 [facility] Work Phone: No Panel Informationon 09-19 Estimated GFR (MDRD) Amer 97 mL/min >60 [facility] Work Phone: Comment on above: GFR Calc Estimated GFR (MDRD) Non-Af Amer 80 mL/min >60 [facility] Work Phone: Comment on above: Non- GFR Calc Platelets bldon 09-19-2021 Platelets (Bld) [#/Vol] 185 10*3/uL 150-450 [facility] Work Phone: Serum or plasma albumin swathi urement (mass/volume)on 09-19-2021 Albumin [Mass/Vol] 4.1 g/dL 3.2-5.0 [facility] Work Phone: Serum or plasma albumin/glob ulin mass ratioon 09-19-2021 Albumin/Globulin [Mass ratio] 1.5 {ratio} 0.9-2.4 [facility] Work Phone: Serum or plasma calcium swathi urement (mass/volume)on 09-19-2021 Calcium [Mass/Vol] 8.9 mg/dL 8.5-10.1 [facility] Work Phone: Serum or plasma cholesterol in HDL measurement (mass/volume)on 09-19-2021 Cholesterol in HDL [Mass/Vol] 38 mg/dL >40 [facility] Work Phone: Comment on above: The drugs N-Acetylcy steine and Metamizole may falsely depress this assay. Reference Range HDL <40 mg/dL Low HDL Cholesterol HDL >or= 60 mg/dL High HDL Cholesterol Serum or plasma cholesterol in VLDL measurement (mass/volume)on 09-19-2021 Cholesterol in VLDL [Mass/Vol] 22 mg/dL 5-40 [facility] Work Phone: Serum or plasma creatinine m easurement (mass/volume)on 09-19-2021 Creatinine [Mass/Vol] 1.06 mg/dL 0.70-1.30 [facility] Work Phone: Comment on above: The validity of the calculated GFR & GFRAA in patients over 70 years has not been determined. Clinical correlation is essential. Serum or plasma low density lipoprotein (LDL) cholesterol measurement (mass/volume)on 09-19-2021 Cholesterol in LDL [Mass/Vol] 85 mg/dL 0-130 [facility] Work Phone: Serum or plasma urea nitroge n measurement (mass/volume)on 09-19-2021 Urea nitrogen [Mass/Vol] 15 mg/dL 7-18 [facility] Work Phone: Thin prep Papanicolaou smear with manual screeningon 09-19-2021 Thin prep Papanicolaou smear with manual screening 18 U/L 15-37 [facility] Work Phone: Thin prep Papanicolaou smear with manual screening 5 5-15 [facility] Work Phone: Vital Signs Date Time Vital Sign Value Performing Clinician Nusrati ansleyy 01-26-2025 15:11040 Body height 1767.[address] Hi Madera MD Work Phone: [facility] 01-26-2025 15:11040 Body mass index (BMI) [Ratio] 0.2 kg/m2 Dr. Hi Madera MD Work Phone: [facility] 01-26-2025 15:11-0400 Body temperature 98.8 [degF] Dr. Hi Madera MD Work Phone: [facility] 01-26-2025 15:11-0400 Body weight 82.[address] Hi Madera MD Work Phone: [facility] 01-26-2025 15:11-0400 Diastolic blood pressure 70 mm[Hg] Dr. Hi Madera MD Work Phone: [facility] 01-26-2025 15:11-0400 Heart rate 92 /min Dr. Hi Madera MD Work Phone: [facility] 01-26-2025 15:11-0400 Respiratory rate 16 /min Dr. Hi Madera MD Work Phone: [facility] 01-26-2025 15:11-0400 SaO2% (BldA) [Mass fraction] 96 % Dr. Hi Madera MD Work Phone: [facility] 01-26-2025 15:11-0400 Systolic blood pressure 110 mm[Hg] Dr. Hi Madera MD Work Phone: [facility] 12-29-2021 14:16-0400 Body height 172.[address] Hi Madera Work Phone: [facility] Work Phone: 12-29-2021 14:16-0400 Body mass index (BMI) [Ratio] 26.8 kg/m2 Dr. Hi Madera Work Phone: [facility] Work Phone: 12-29-2021 14:16-0400 Body temperature 97.9 [degF] Dr. Hi Madera Work Phone: [facility] Work Phone: 12-29-2021 14:16-0400 Body weight [address] Hi Madera Work Phone: [facility] Work Phone: 12-29-2021 14:16-0400 Diastolic blood pressure 101 mm[Hg] Dr. Hi Madera Work Phone: [facility] Work Phone: 12-29-2021 14:16-0400 Heart rate 109 /min Dr. Hi Madera Work Phone: [facility] Work Phone: 12-29-2021 14:16-0400 Respiratory rate 18 /min Dr. Hi Madera Work Phone: [facility] Work Phone: 12-29-2021 14:16-0400 SaO2% (BldA) [Mass fraction] 99 % Dr. Hi Madera Work Phone: [facility] Work Phone: 12-29-2021 14:16-0400 Systolic blood pressure 172 mm[Hg] Dr. Hi Madera Work Phone: [facility] Work Phone: 09-05-2021 14:34-0500 Body mass index (BMI) [Ratio] 27.5 kg/m2 Dr. Hi Madera Work Phone: [facility] Work Phone: 09-05-2021 14:34-0500 Body temperature 96.7 [degF] Dr. Hi Madera Work Phone: [facility] Work Phone: 09-05-2021 14:34-0500 Body weight 82.[address] Hi Madera Work Phone: [facility] Work Phone: 09-05-2021 14:34-0500 Diastolic blood pressure 80 mm[Hg] Dr. Hi Madera Work Phone: [facility] Work Phone: 09-05-2021 14:34-0500 Heart rate 90 /min Dr. Hi Madera Work Phone: [facility] Work Phone: 09-05-2021 14:34-0500 Respiratory rate 16 /min Dr. Hi Madera Work Phone: [facility] Work Phone: 09-05-2021 14:34-0500 SaO2% (BldA) [Mass fraction] 98 % Dr. Hi Madera Work Phone: [facility] Work Phone: 09-05-2021 14:34-0500 Systolic blood pressure 132 mm[Hg] Dr. Hi Madera Work Phone: [facility] Work Phone: 09-05-2021 13:34-0500 Body height 172.[address] Hi Madera Work Phone: [facility] Work Phone: 09-05-2021 13:34-0500 Body mass index (BMI) [Ratio] 27.5 kg/m2 Dr. Hi Madera Work Phone: [facility] Work Phone: 09-05-2021 13:34-0500 Body temperature 96.7 [degF] Dr. Hi Madera Work Phone: [facility] Work Phone: 09-05-2021 13:34-0500 Body weight 82.[address] Hi Madera Work Phone: [facility] Work Phone: 09-05-2021 13:34-0500 Diastolic blood pressure 80 mm[Hg] Dr. Hi Madera Work Phone: [facility] Work Phone: 09-05-2021 13:34-0500 Heart rate 90 /min Dr. Hi Madera Work Phone: [facility] Work Phone: 09-05-2021 13:34-0500 Respiratory rate 16 /min Dr. Hi Madera Work Phone: [facility] Work Phone: 09-05-2021 13:34-0500 SaO2% (BldA) [Mass fraction] 98 % Dr. Hi Madera Work Phone: [facility] Work Phone: 09-05-2021 13:34-0500 Systolic blood pressure 132 mm[Hg] Dr. Hi Madera Work Phone: [facility] Work Phone: Encounters Encounter Date Encounter Type Care Provider Facility Start: 01-26-2025 End: 01-26-[address] Hi Madera MD Work Phone: -[facility] Start: 01-26-2025 End: 01-26-2025 Patient encounter procedure Josse GOODMAN -[facility] Work Phone: Start: 01-26-2025 End: 01-26-2025 Patient encounter status Josse GOODMAN [facility] Start: 12-27-2023 Encounter for genera l adult medical examination [facility] Start: 12-17-2023 End: 12-17-2023 ambulatory [facility] Facility:[facility] Start: 12-08-2023 End: 12-08-2023 ambulatory [facility] Facility:[facility] Start: 12-29-2021 End: 12-29-2021 Emergency department patient visit Dr. Hi Madera Work Phone: [facility] Department Start: 09-19-2021 End: 09-19-[address] Hi Madera Work Phone: [facility] Start: 09-05-[address] Francois Madera Work Phone: [facility] Start: 09-05-2021 End: 09-05-2021 Encounter for general adult medical examination without abnormal findings Dr. Hi Madera Work Phone: [facility] Start: 09-05-2021 End: 09-05-[address] Hi Madera Work Phone: [facility] Plan of Treatment Date Care Activity Detail Author Start: 12-29-2021 Diagnostic radiograp hy of finger Finger(s) Min 2 Views [facility] Work Phone: Start: 12-29-2021 XR Finger GE 2 Views [facility] Work Phone: CBC W Auto Different ial panel - Blood [facility] Comprehensive metabo lic 1999 panel - Serum or Plasma [facility] Lipid 1996 panel - S sadia or Plasma [facility] Patient Education ED Fracture, Finger, Open [facility] Work Phone: Patient referral [facility] Work Phone: Immunizations Immunization Date Immunization Notes Care Provider Dylan reed 12-29-2021 tetanus toxoid, redu marcella diphtheria toxoid, and acellular pertussis vaccine, adsorbed Dr. Hi Madera Work Phone: [facility] Payers Date Payer Category Payer Self-pay [id number] 2023 Unknown [id number] 2020 Unknown [id number] Unknown SELF PAY INSURANCE [id number] Unknown [id number] Unknown [id number] Social History Date Type Detail Facility Start: 09-05-2021 End: 12-29-2021 Tobacco smoking status NEIS Unknown if ever smoked [facility] Work Phone: Start: 1975 Sex Assigned At Male [facility] Start: 12-08-2023 Tobacco smoking stat [email or web address] Ex-smoker (finding) [facility] Evaluation note Note Date & Type Note Facility Evaluation note Diagnosis Onset Date Colon cancer screening acute Dermatitis acute Preventative health care acu te [facility] Work Phone: Evaluation note Note Date & Type Note Facility Evaluation note Diagnosis Onset Date Resolution Colon cancer screening acute Au 2024 2:58pm Hyperlipidemia acute January 2:58pm [facility] acute January 26, 2025 2:58pm Hypertriglyceridemia chronic Augu 2024 2:58pm [facility] Work Phone: Reason for referral (narrative) Note Date & Type Note Facility Reason for referral (narrative) No reason for referral information available [facility] Work Phone: Chief Complaint and Reason for Visit Chief Complaint yearly check up Reason for Visit Colon cancer screeni ng Dermatitis [facility] Chief Complaint yearly check up UPPER EXTREMITY Reason for Visit Colon cancer screeni ng Dermatitis [facility] Chief Complaint Admit Date ACUTE MED REFILL January 26, 2025 2:5 8pm Reason for Visit Admit Date Colon cancer screening January 26, 2025 2:58pm Hyperlipidemia January 26, 2025 2:5 8pm Preventative health care January 26 2:58pm Hypertriglyceridemia January 26, 2025 2: 58pm Family History Relationship Condition Age at Onset Recorded Date/T anton Not Specified Arthritis Unknown Cardiac disease Unknown Malignant neoplasm Unknown Advance Directives Advance Directive Response Recorded Date/ Time Living Will No December 29, 2021 2 :26pm Power of Project Admin No December 29, 2021 2:26pm Summary Purpose Additional Source Comments Goals (unrecognized section and content) Goals may be documented in a n alternate sectionGoals may be documented in an alternate sectionGoals may be documented in an alternate section (unrecognized sect ion and content) No Status Records Found INFORMATION SOURCE (unrecogn ized section and content) DATE CREATED AUTHOR 12/28/2023 [facility] Care Teams (unrecognized sec tion and content) Team Status: Active Member Role/Relationship Status Dates Dr. Hi Madera MD Family Provider Active Dr. Hi Madera MD Primary Care Provider Active Team Status: Inactive Member Role/Relationship Status Dates Dr. Hi Madera MD Primary Care Provider Active Start: January 26, 2025 End: January 26, 2025 Dr. Hi Madera MD Referring Provider Active Start: January 26, 2025 End: January 26, 2025 REX Araya Attending Provider Active St art: January 26, 2025 End: January 26, 2025 FOR RECORDS PERTAINING TO PATIENTS WHO ARE OR HAVE BEEN ENROLLED IN A CHEMICAL DEPENDENCY/SUBSTANCEABUSE PROGRAM, SOME INFORMATION MAY BE OMITTED. This clinical summary was aggregated from multiple sources. Caution should be exercised in using it in the provision of clinical care. This summary normalizes information from multiple sources, and as a consequence, information in this document may materially change the coding, format and clinical context of patient data. In addition, data may be omitted in some cases. CLINICAL DECISIONS SHOULD BE BASED ON THE PRIMARY CLINICAL RECORDS. [employer] [facility]. provides no warranty or guarantee of the accuracy or completeness of information in this document.
== END | disposition home or self-care (01) ==
LOC: BIMLAB 15:40
PROVIDERS: PCP Internal Medicine; Referring Provider Physician Assistant; Visit Provider Physician Assistant
DX: Z00.00 Encounter for general adult medical examination without abnormal findings (principal); E78.1 Pure hyperglyceridemia
CPT/HCPCS: 36415; 80053; 80061; 85025